=== PATIENT | female | born 2000 | race African-American/Black ===

== ENCOUNTER 2024-08-15 16:18 | Emergency (ER) | payer OTHER ==
[~2024-08-15] VITALS: Ht 167.6 cm; Wt 80.0 kg
[2024-08-15 16:23] VITALS: BP 137/92; PULSE 105; RESP 16; TEMP 98.5; O2SAT 99
== END 2024-08-15 18:15 | disposition left against medical advice (07) ==
LOC: ER 16:18
DX: R42 Dizziness and giddiness (principal); R53.1 Weakness; Z53.21 Procedure and treatment not carried out due to patient leaving prior to being seen by health care provider